=== PATIENT | female | born 1950 | race Caucasian/White ===

== ENCOUNTER 2020-12-30 12:21 | Emergency (ER) | payer MEDICARE, OTHER ==
[~2020-12-30 12:21] MED LIST: ENTYVIO300 MG IV; LODINE400 MG PO; ROBAXIN500 MG PO
== END 2020-12-30 14:00 | disposition home or self-care (01) ==
LOC: FER 12:21
DX: T14.8XXA Other injury of unspecified body region, initial encounter (principal); Z23 Encounter for immunization; W55.81XA Bitten by other mammals, initial encounter; Y92.009 Unspecified place in unspecified non-institutional (private) residence as the place of occurrence of the external cause
CPT/HCPCS: 90375; 90471; 90675; 90715; 99283